=== PATIENT | male | born 1960 | race Two or more races ===

== ENCOUNTER 2021-04-17 09:08 | Inpatient (IN) | payer MEDICAID, SELFPAY ==
[~2021-04-17] VITALS: Ht 177.8 cm; Wt 73.9 kg
--- NOTE | 2021-04-17 09:08 | NUR ---
PT BIBRA 39 FROM HOME C/O SOB AND LOW O2 SAT 88% ON RA. PT IS AAOX4, HOOKED TO O2 AT 3 LPM VIA NC SAT @ 98%, HOOKED TO ATV MECHANIC, KEPT RESTED AND COMFORTABLE. WILL CONTINUE TO MONITOR.
--- NOTE | 2021-04-17 09:25 | NUR ---
AT BEDSIDE FOR EVAL.
[2021-04-17] MEDS ORDERED: DEXAMETHASONE SOLN 5 MG/5 ML UDC PO ONE (09:30)
--- NOTE | 2021-04-17 09:30 | NUR ---
IV LINE ESTABLISHED BLOOD DRAWN AND SENT TO LAB.
--- NOTE | 2021-04-17 09:36 | NUR ---
FUNDS TRANSFER CLERK AT BEDSIDE FOR XRAY.
[2021-04-17] MEDS ORDERED: DEXAMETHASONE SOD PHOSPHATE 4 MG/ML VIAL ONE (09:44)
[2021-04-17] MEDS ORDERED: CEFTRIAXONE 1GM BAG (ER ONLY) 50 ML IV ONE (09:44)
[2021-04-17] MEDS ORDERED: ASCO-352 PO (09:50)
[2021-04-17] MEDS ORDERED: ZINC50TA69 PO (09:50)
[2021-04-17] MEDS ORDERED: CHOL100062 PO (09:50)
--- NOTE | 2021-04-17 09:50 | NUR ---
COVID SPECIMEN OBTAINED AND SENT TO LAB.
[2021-04-17 09:56] LABS: BASOPHILS % (AUTO) 0.1 % (0.0-2.0); HEMATOCRIT 44 % (39-51); HEMOGLOBIN 15.4 g/dL (13.5-17.5); LYMPHOCYTES # (AUTO) 0.5 K/uL (0.8-4.8); LYMPHOCYTES % (AUTO) 8.8 % (20.0-44.0); MEAN CORPUSCULAR HGB CONC 35 g/dl (31.0-36.0); MEAN CORPUSCULAR VOLUME 91 fL (80-96); MONOCYTES # (AUTO) 0.8 K/uL (0.1-1.30); MONOCYTES % (AUTO) 12.6 % (2.0-12.0); NEUTROPHILS # (AUTO) 4.9 K/uL (1.8-8.9); NEUTROPHILS % (AUTO) 78.5 % (43.0-81.0); PLATELET COUNT (AUTO) 279 K/uL (150-450); RED BLOOD CELL COUNT(AUTO) 4.84 MIL/uL (4.5-6.0); WHITE BLOOD COUNT (AUTO) 6.3 K/uL (4.3-11.0)
[2021-04-17] MEDS ORDERED: DEXAMETHASONE SOD PHOSPHATE 4 MG/ML VIAL IV ONE (10:00)
[2021-04-17] MEDS ORDERED: AZITHROMYCIN 500 MG in IV D5W 250 ML IV ONE (10:00)
[2021-04-17] MEDS ORDERED: CEFTRIAXONE 1GM BAG (ER ONLY) 1 GM/50 ML PIGGYBACK IV ONE (10:00)
[2021-04-17 10:07] LABS: ABG BASE EXCESS 1.9 mmol/L; ABG OXYGEN SATURATION 93.3 % (92.0-98.5); ABG PCO2 31.8 mmHg (35.0-45.0); ABG PO2 62.7 mmHg (75.0-100.0); AaDO2 135.5 mmHg; COHb 0.6 % (0.5-1.5); MetHb 0.3 % (0.0-1.5); O2Hb 92.5 % (94.0-97.0); SITE, ABG Right Femoral; VENT MODE, BG nasal cannula
[2021-04-17 10:10] LABS: D-DIMER 1.35 mg/L(FEU (0.17-0.50)
--- NOTE | 2021-04-17 10:25 | NUR ---
MOVE SHEET SUBMITTED AND CALLED FOR TELE BED.
[2021-04-17 10:26] LABS: CALCIUM, SERUM 8.4 mg/dL (8.5-10.1); CARBON DIOXIDE 27 mmol/L (21-32); CHLORIDE 102 mmol/L (98-107); CREATININE 1.1 mg/dL (0.6-1.3); GLUCOSE 108 mg/dL (74-106); SODIUM SERUM 137 mmol/L (136-145); UREA NITROGEN, BLOOD 17 mg/dL (7-18)
[2021-04-17 10:31] LABS: ALANINE AMINOTRANSFERASE 59 U/L (12-78); ALBUMIN 2.9 g/dL (3.4-5.0); ALKALINE PHOSPHATASE 55 U/L (46-116); ASPARTATE AMINOTRANSFERASE 26 U/L (15-37); BILIRUBIN,TOTAL 0.8 mg/dL (0.2-1.0); TOTAL PROTEIN, SERUM 6.8 g/dL (6.4-8.2)
[2021-04-17 10:46] LABS: CREATINE KINASE, TOTAL 41 U/L (39-308)
[2021-04-17 10:47] LABS: C-REACTIVE PROTEIN 11.7 mg/dL (0.0-0.9)
--- NOTE | 2021-04-17 10:52 | NUR ---
[facility] CALLED SLIP SEAT COVERER PAGED.
[2021-04-17] MEDS ORDERED: ACETAMINOPHEN 325 MG TABLET PO PRN (11:30)
[2021-04-17] MEDS ORDERED: ALBUTEROL SULFATE 8 GM HFA.AER.AD IH PRN (11:30)
[2021-04-17] MEDS ORDERED: ONDANSETRON HCL/PF 4 MG/2 ML VIAL IVP PRN (11:30)
--- NOTE | 2021-04-17 12:07 | NUR ---
REPORT GIVEN TO CJ LESLIE FOR ROSAMARIA.
[2021-04-17] MEDS ORDERED: ALBUTEROL FS 2.5 MG/3 ML VIAL.NEB NEB PRN (12:30)
--- NOTE | 2021-04-17 12:30 | NUR ---
LIBRARIAN HELPER NOTES RECEIVED PT FROM ER. DX OF COVID RELATED PNEUMONIA. ADMITTING DOCTOR IS LIBRA WERNER. RECEIVED PT IN BED, PT IS A/O X4 ON 4L NC SATING AT 97%. NO SOB, NO DISTRESS NOTED, BREATHING EVEN AND UNLABORED. SINUS RHYTHM ON MONITOR. PATIENT HAS L FA 20G. FLUSHES WELL AND PATENT. SKIN INTACT. PLAN OF CARE DISCUSSED, VERBALIZED UNDERSTANDING. AIRBORNE ISOLATION PRECAUTIONS IN PLACE. ALL SAFETY MEASURES IN PLACE, BED IN LOWEST LOCKED POSITION, SIDE RAILS UP X 3, CALL LIGHT WITHIN REACH. WILL CONTINUE TO MONITOR THROUGHOUT SHIFT. Addendum: 04/17/21 at 1539 by LORETO SCHRADER RN IV CATHETER SIZE IS 18. Addendum: 04/17/21 at 1546 by LORETO SCHRADER RN RECEIVED PT FROM E[facility] IN ER.
[2021-04-17] MEDS: ENOXAPARIN SODIUM 40 MG/0.4 ML DISP.SYRIN SQ SCH (13:08)
--- NOTE | 2021-04-17 19:08 | NUR ---
RN CLOSING NOTE PT IN BED RESTING. PT IS A/O X 4. PT IS ON 4L NC WITH NO S/SX OF PAIN OR RESP DISTRESS NOTED AT THIS TIME. BREATHING IS EVEN AND UNLABORED. PT HAS L AC #18. IV FLUSHES WELL AND PATENT. ISOLATION PRECAUTIONS IN PLACE. MEDS GIVEN ORDERED. PT TOLERATED ALL TREATMENTS WELL. ALL SAFETY MEASURES IN PLACE, BED IN LOWEST LOCKED POSITION, SIDE RAILS UP X 3, CALL LIGHT WITHIN REACH. WILL ENDORSE TO ONCOMING COMPUTER NUMERICAL CONTROL PROGRAMMER NURSE.
--- NOTE | 2021-04-17 19:30 | NUR ---
AGILE BUSINESS ANALYST NOTE RECEIVED PATIENT IN BED. A/OX4. NO S/S OF APPARENT DISTRESS ON 6LPM OF O2 VIA NC. DENIES PAIN AT THIS TIME. LEFT AC IV ACCESS ON SALINE LOCK. TELE MONITOR READING NSR 81. NEEDS ATTENDED AT THIS TIME. SAFETY IN PLACE. WILL FOLLOW THROUGH WITH PATIENT'S CARE PLAN.
--- NOTE | 2021-04-18 06:42 | NUR ---
MS RN CLOSING NOTE NO SIGNIFICANT CHANGE WITH PATIENT SINCE LAST ENDORSEMENT. TELE MONITOR READING SR THROUGHOUT SHIFT. ALL NEEDS ATTENDED. ALL SCHEDULED MEDICATION ADMINISTERED. WILL ENDORSE TO MORNING SHIFT RN FOR CONTINUITY OF CARE.
--- NOTE | 2021-04-18 07:30 | NUR ---
MS RN OPENING NOTES RECEIVED PATIENT ON BED, RESTING AND A/O X4. ON O2 AT 6LPM VIA NASAL CANNULA TOLERATING WELL. WITH NO COMPLAINTS OF PAIN OR DISCOMFORT AT THIS TIME. WITH IV ACCESS AT LEFT AC G20 SALINE LOCKED, PATENT AND INTACT. SAFETY MEASURES IN PLACED. CALL LIGHT WITHIN REACH. BED ON LOWEST LOCKED POSITION, SIDE RAILS UP X2. WILL CONTINUE TO MONITOR.
[2021-04-18 07:49] LABS: BASOPHILS % (AUTO) 0.4 % (0.0-2.0); HEMATOCRIT 44 % (39-51); HEMOGLOBIN 15.3 g/dL (13.5-17.5); LYMPHOCYTES # (AUTO) 0.8 K/uL (0.8-4.8); MEAN CORPUSCULAR HGB CONC 35 g/dl (31.0-36.0); MEAN CORPUSCULAR VOLUME 91 fL (80-96); NEUTROPHILS # (AUTO) 7.6 K/uL (1.8-8.9); NEUTROPHILS % (AUTO) 80.6 % (43.0-81.0); PLATELET COUNT (AUTO) 323 K/uL (150-450); RED BLOOD CELL COUNT(AUTO) 4.81 MIL/uL (4.5-6.0); WHITE BLOOD COUNT (AUTO) 9.4 K/uL (4.3-11.0)
[2021-04-18 08:00] VITALS: BP 132/69
[2021-04-18] MEDS: DEXAMETHASONE SOD PHOSPHATE 10 MG/ML VIAL IV SCH (09:34)
[2021-04-18] MEDS: PANTOPRAZOLE 40 MG TABLET.DR PO SCH (09:35)
[2021-04-18] MEDS: ENOXAPARIN SODIUM 40 MG/0.4 ML DISP.SYRIN SQ SCH (09:35)
[2021-04-18 10:06] LABS: ALBUMIN 2.7 g/dL (3.4-5.0); BILIRUBIN,TOTAL 0.7 mg/dL (0.2-1.0); CALCIUM, SERUM 8.6 mg/dL (8.5-10.1); CREATININE 1.1 mg/dL (0.6-1.3); MAGNESIUM 2.3 mg/dL (1.8-2.4); PHOSPHORUS 3.6 mg/dL (2.5-4.9); POTASSIUM 3.9 mmol/L (3.5-5.1); TOTAL PROTEIN, SERUM 6.8 g/dL (6.4-8.2)
[2021-04-18 12:00] VITALS: BP 121/54
[2021-04-18] MEDS: AZITHROMYCIN 250 MG TABLET PO SCH (12:35)
[2021-04-18] MEDS ORDERED: GUAIFENESIN/CODEINE 10 ML UDC PO PRN (13:00)
[2021-04-18] MEDS: ZINC SULFATE 220 MG CAPSULE PO SCH (13:10)
[2021-04-18] MEDS: ASCORBIC ACID 500 MG TABLET PO SCH (13:10)
[2021-04-18] MEDS: CHOLECALCIFEROL 1,000 UNIT TABLET (VIT D3) PO SCH (13:10)
[2021-04-18] MEDS ORDERED: REMDESIVIR (CHARGED) 200 MG, *LOADING DOSE 1 EA in IV NS 0.9% 210 ML IV ONE (14:00)
--- NOTE | 2021-04-18 18:21 | NUR ---
CNC SPECIALIST CLOSING NOTES PATIENT ON BED, RESTING AND A/O X4. ON O2 AT 6LPM VIA NASAL CANNULA TOLERATING WELL. WITH NO COMPLAINTS OF PAIN OR DISCOMFORT AT THIS TIME. WITH IV ACCESS AT LEFT AC G20 SALINE LOCKED, PATENT AND INTACT. SAFETY MEASURES IN PLACED. CALL LIGHT WITHIN REACH. BED ON LOWEST LOCKED POSITION, SIDE RAILS UP X2. WILL ENDORSE TO NEXT SHIFT FOR ROSAMARIA.
--- NOTE | 2021-04-18 19:15 | NUR ---
RN OPENING NOTES RECEIVED PATIENT ON BED A/O X 4, RESPIRATORY EVEN AND UNLABORED, ON NC AT 6LPM TOLERATING WELL, NO SOB NOTED, NO S/S OF DISTRESS NOTED. PATIENT NOTED WITH LAC PERIPHERAL LINE G#20 INTACT PATENT AND FLUSHING WELL. BED IN LOWEST POSITION LOCKED AND BED ALARM ARMED. WILL CONTINUE TO MONITOR.
[2021-04-18 20:00] VITALS: BP 116/81
[2021-04-19] VITALS: BP 122/61
[2021-04-19 04:00] VITALS: BP 114/62
--- NOTE | 2021-04-19 07:18 | NUR ---
RN CLOSING NOTES REMAIN STABLE THROUGH OUT THE NIGHT, RESPIRATORY EVEN AND UNLABORED, ON NC AT 6LPM TOLERATING WELL, NO SOB NOTED, NO S/S OF DISTRESS NOTED. PATIENT NOTED WITH LAC PERIPHERAL LINE G#20 INTACT PATENT AND FLUSHING WELL. ALL DUE MEDS GIVEN ORDERED. BED IN LOWEST POSITION LOCKED AND BED ALARM ARMED. WILL CONTINUE TO MONITOR.
[2021-04-19 08:00] VITALS: BP 109/74
[2021-04-19] MEDS: CHOLECALCIFEROL 1,000 UNIT TABLET (VIT D3) PO SCH (08:39)
[2021-04-19] MEDS: ASCORBIC ACID 500 MG TABLET PO SCH (08:39)
[2021-04-19] MEDS: PANTOPRAZOLE 40 MG TABLET.DR PO SCH (08:39)
[2021-04-19] MEDS: DEXAMETHASONE SOD PHOSPHATE 10 MG/ML VIAL IV SCH (08:39)
[2021-04-19] MEDS: ZINC SULFATE 220 MG CAPSULE PO SCH (08:40)
[2021-04-19 08:41] LABS: BASOPHILS % (AUTO) 0.1 % (0.0-2.0); EOSINOPHILS % (AUTO) 0.3 % (0.0-6.0); HEMATOCRIT 42 % (39-51); HEMOGLOBIN 14.6 g/dL (13.5-17.5); LYMPHOCYTES # (AUTO) 0.9 K/uL (0.8-4.8); LYMPHOCYTES % (AUTO) 10.6 % (20.0-44.0); MEAN CORPUSCULAR HGB CONC 35 g/dl (31.0-36.0); MEAN CORPUSCULAR VOLUME 91 fL (80-96); MONOCYTES # (AUTO) 1.1 K/uL (0.1-1.30); MONOCYTES % (AUTO) 13.6 % (2.0-12.0); NEUTROPHILS # (AUTO) 6.2 K/uL (1.8-8.9); NEUTROPHILS % (AUTO) 75.4 % (43.0-81.0); PLATELET COUNT (AUTO) 400 K/uL (150-450); RED BLOOD CELL COUNT(AUTO) 4.65 MIL/uL (4.5-6.0); WHITE BLOOD COUNT (AUTO) 8.2 K/uL (4.3-11.0)
[2021-04-19] MEDS: ENOXAPARIN SODIUM 40 MG/0.4 ML DISP.SYRIN SQ SCH (08:41)
[2021-04-19 08:51] LABS: ALBUMIN 2.5 g/dL (3.4-5.0); BILIRUBIN,DIRECT 0.2 mg/dL (0.0-0.2); BILIRUBIN,TOTAL 0.8 mg/dL (0.2-1.0); CALCIUM, SERUM 8.6 mg/dL (8.5-10.1); POTASSIUM 4.1 mmol/L (3.5-5.1); TOTAL PROTEIN, SERUM 6.2 g/dL (6.4-8.2)
[2021-04-19] MEDS: AZITHROMYCIN 250 MG TABLET PO SCH (11:32)
[2021-04-19 12:00] VITALS: BP 106/73
[2021-04-19] MEDS: ACIDOPHILUS/BULGARICUS 1 EACH TAB.CHEW PO SCH ×2 (12:07→16:28)
[2021-04-19] MEDS: REMDESIVIR (CHARGED) 100 MG in IV NS 0.9% 100 ML IV SCH (14:01)
[2021-04-19 16:00] VITALS: BP 110/75
--- NOTE | 2021-04-19 18:42 | NUR ---
RN CLOSING NOTES PATIENT IN BED, A/O X4, REMAINS STABLE THROUGH OUT THE DAY, RESPIRATORY EVEN AND UNLABORED, ON NC AT 6L TOLERATING WELL, NO SOB NOTED, BREATHING EVEN, DENIES CHEST DISCOMFORT, NO S/S OF DISTRESS NOTED. PATIENT NOTED WITH LAC PERIPHERAL LINE G#20 INTACT PATENT AND FLUSHING WELL. ALL DUE MEDS GIVEN ORDERED. BED IN LOWEST POSITION LOCKED. CALL LIGHT WITHIN REACH. WILL ENDORSE TO COMPLAINT ADJUSTER NURSE.
--- NOTE | 2021-04-19 19:35 | NUR ---
RN OPENING NOTES RECEIVED PATIENT ON BED, SITTING POSITION, A/O X 4, VERBALLY RESPONSIVE. ABLE TO VERBALIZED NEEDS. NO SOB, NO CHEST CONGESTION, BREATHING EVEN AND UNLABORED, ON NC AT 6LPM TOLERATING WELL, IV ACCESS ON LAC G#20 INTACT AND PATENT. NO S/S OF INFILTRATIONS. NO C/O PAIN OR DISCOMFORT. NO ACUTE DISTRESS. ALL SAFETY MEASURES IN PLACE. BED IN LOWEST POSITION AND LOCKED. BOTH SIDE RAILS UP. WILL CONTINUE TO MONITOR.
[2021-04-19 20:00] VITALS: BP 120/61
[2021-04-20] VITALS (7 sets, daily range): BP systolic 110–130; BP diastolic 52–80
--- NOTE | 2021-04-20 07:01 | NUR ---
RN CLOSING NOTES PATIENT SITTING ON BED, A/O X 4, VERBALLY RESPONSIVE. ABLE TO VERBALIZED NEEDS. NO SOB, NO CHEST CONGESTION, BREATHING EVEN AND UNLABORED, ON O2 AT 6LPM VIA N/C, O2 SAT 96% AND TOLERATING WELL, IV ACCESS ON LAC G#20 INTACT AND PATENT. NO S/S OF INFILTRATIONS. NO C/O PAIN OR DISCOMFORT. NO ACUTE DISTRESS. PT STRONGLY WANTS TO MOVE TO DIFFERENT ROOM. ALL SAFETY MEASURES IN PLACE. BED IN LOWEST POSITION AND LOCKED. BOTH SIDE RAILS UP. WILL ENDORSE TO MORNING SHIFT NURSE.
--- NOTE | 2021-04-20 07:26 | NUR ---
RN NOTE PATIENT IS IN BED WITH HOB AT SEMI FOWLERS POSITION. PATIENT IS ON ROOM AIR WITH NO SIGNS OF LABORED BREATHING. PATIENT IS AOX1. BED IS LOCKED IN THE LOWEST POSITION, 3 GUARD RAILS RAISED, CALL ANGUIANO WITHIN REACH, AND ALL HOSPITAL SAFETY PRECAUTIONS ARE BEING FOLLOWED. WILL CONTINUE TO MONITOR THROUGHOUT SHIFT.
[2021-04-20 07:34] LABS: ALBUMIN 2.4 g/dL (3.4-5.0); BILIRUBIN,DIRECT 0.2 mg/dL (0.0-0.2); BILIRUBIN,TOTAL 0.8 mg/dL (0.2-1.0); CALCIUM, SERUM 9.1 mg/dL (8.5-10.1); POTASSIUM 4.3 mmol/L (3.5-5.1); TOTAL PROTEIN, SERUM 6.1 g/dL (6.4-8.2)
[2021-04-20 07:44] LABS: BASOPHILS % (AUTO) 0.2 % (0.0-2.0); EOSINOPHILS % (AUTO) 0.7 % (0.0-6.0); HEMATOCRIT 41 % (39-51); HEMOGLOBIN 14.3 g/dL (13.5-17.5); LYMPHOCYTES # (AUTO) 0.9 K/uL (0.8-4.8); LYMPHOCYTES % (AUTO) 11.6 % (20.0-44.0); MEAN CORPUSCULAR HGB CONC 35 g/dl (31.0-36.0); MEAN CORPUSCULAR VOLUME 91 fL (80-96); MONOCYTES # (AUTO) 1.1 K/uL (0.1-1.30); MONOCYTES % (AUTO) 15.2 % (2.0-12.0); NEUTROPHILS # (AUTO) 5.4 K/uL (1.8-8.9); NEUTROPHILS % (AUTO) 72.3 % (43.0-81.0); PLATELET COUNT (AUTO) 450 K/uL (150-450); RED BLOOD CELL COUNT(AUTO) 4.51 MIL/uL (4.5-6.0); WHITE BLOOD COUNT (AUTO) 7.5 K/uL (4.3-11.0)
[2021-04-20] MEDS: ZINC SULFATE 220 MG CAPSULE PO SCH (08:25)
[2021-04-20] MEDS: PANTOPRAZOLE 40 MG TABLET.DR PO SCH (08:25)
[2021-04-20] MEDS: ASCORBIC ACID 500 MG TABLET PO SCH (08:25)
[2021-04-20] MEDS: ACIDOPHILUS/BULGARICUS 1 EACH TAB.CHEW PO SCH ×3 (08:25→16:15)
[2021-04-20] MEDS: CHOLECALCIFEROL 1,000 UNIT TABLET (VIT D3) PO SCH (08:26)
[2021-04-20] MEDS: DEXAMETHASONE SOD PHOSPHATE 10 MG/ML VIAL IV SCH (08:26)
[2021-04-20] MEDS: ENOXAPARIN SODIUM 40 MG/0.4 ML DISP.SYRIN SQ SCH (08:28)
[2021-04-20 09:16] LABS: LYMPHOCYTES % (MANUAL) 14 % (16-48); MONOCYTES % (MANUAL) 12 % (0-11.0); NEUTROPHILS % (MANUAL) 74 (42-76)
[2021-04-20] MEDS ORDERED: CODEINE/PROMETHAZINE HCL 5 ML UDC PO PRN (12:00)
[2021-04-20] MEDS: AZITHROMYCIN 250 MG TABLET PO SCH (13:43)
[2021-04-20] MEDS: REMDESIVIR (CHARGED) 100 MG in IV NS 0.9% 100 ML IV SCH (13:44)
--- NOTE | 2021-04-20 18:43 | NUR ---
RN NOTE PATIENT IS IN BED WITH HOB AT SEMI FOWLERS POSITION. PATIENT IS ON 6L NC WITH NO SIGNS OF LABORED BREATHING. PATIENT IS AOX1. BED IS LOCKED IN THE LOWEST POSITION, 3 GUARD RAILS RAISED, CALL ANGUIANO WITHIN REACH, AND ALL HOSPITAL SAFETY PRECAUTIONS ARE BEING FOLLOWED. PATIENT REMAINED STABLE THROUGHOUT SHIFT AND ALL DUE MEDS WERE GIVEN. WILL ENDORSE TO PLASMA PROCESSING TECHNICIAN RN.
--- NOTE | 2021-04-20 19:55 | NUR ---
RN OPENING NOTES PATIENT IS LAYING COMFORTABLY IN BED, A/O X 4, VERBALLY RESPONSIVE. ABLE TO VERBALIZED NEEDS. NO SOB, NO CHEST CONGESTION, BREATHING EVEN AND UNLABORED, ON O2 AT 6LPM VIA N/C, O2 SAT 96% AND TOLERATING WELL, IV ACCESS ON LAC G#20 INTACT AND PATENT. NO S/S OF INFILTRATIONS. NO C/O PAIN OR DISCOMFORT.ALL ISOLATION PRECAUTIONS AND ENVIRONMENTAL MEASURES TAKEN. BED IN LOWEST POSITION AND LOCKED. BOTH SIDE RAILS UP.
[2021-04-21] VITALS: BP 110/61
--- NOTE | 2021-04-21 06:50 | NUR ---
RN CLOSING NOTES PATIENT REMAINS IN BED RESTING, A/O X 4 WITH NO COMPLAINS OF SOB. AT 6L OF O2 SATURATING 97%. ALL PATIENT NEEDS MET THROUGHOUT THE SHIFT. . ALL SAFETY MEASURES IN PLACE. BED IN LOWEST POSITION AND LOCKED. BOTH SIDE RAILS UP. WILL ENDORSE TO ONCOMING MORNING SHIFT NURSE.
[2021-04-21 07:12] LABS: BASOPHILS % (AUTO) 0.2 % (0.0-2.0); HEMATOCRIT 41 % (39-51); HEMOGLOBIN 14.3 g/dL (13.5-17.5); LYMPHOCYTES # (AUTO) 1.1 K/uL (0.8-4.8); LYMPHOCYTES % (AUTO) 18.5 % (20.0-44.0); MEAN CORPUSCULAR HGB CONC 35 g/dl (31.0-36.0); MEAN CORPUSCULAR VOLUME 91 fL (80-96); MONOCYTES # (AUTO) 0.9 K/uL (0.1-1.30); MONOCYTES % (AUTO) 14.8 % (2.0-12.0); NEUTROPHILS % (AUTO) 65.5 % (43.0-81.0); PLATELET COUNT (AUTO) 469 K/uL (150-450); RED BLOOD CELL COUNT(AUTO) 4.51 MIL/uL (4.5-6.0); WHITE BLOOD COUNT (AUTO) 6.1 K/uL (4.3-11.0)
[2021-04-21 07:26] LABS: ALBUMIN 2.4 g/dL (3.4-5.0); BILIRUBIN,DIRECT 0.2 mg/dL (0.0-0.2); BILIRUBIN,TOTAL 0.5 mg/dL (0.2-1.0); CALCIUM, SERUM 8.6 mg/dL (8.5-10.1); CREATININE 1.1 mg/dL (0.6-1.3); POTASSIUM 4.4 mmol/L (3.5-5.1); TOTAL PROTEIN, SERUM 6.1 g/dL (6.4-8.2)
--- NOTE | 2021-04-21 07:56 | NUR ---
RN OPENING NOTE RECEIVED PATIENT ON BED, SITTING POSITION, A/O X 4, NO SOB, NO CHEST CONGESTION, BREATHING EVEN AND UNLABORED, ON NC AT 6LPM TOLERATING WELL, IV ACCESS ON LAC G#20 INTACT AND PATENT. NO S/S OF INFILTRATIONS. NO C/O PAIN OR DISCOMFORT. NO ACUTE DISTRESS. ALL SAFETY MEASURES IN PLACE. BED IN LOWEST POSITION AND LOCKED. BOTH SIDE RAILS UP.
[2021-04-21 08:00] VITALS: BP 105/57
[2021-04-21] MEDS: DEXAMETHASONE SOD PHOSPHATE 10 MG/ML VIAL IV SCH (08:30)
[2021-04-21] MEDS: PANTOPRAZOLE 40 MG TABLET.DR PO SCH (08:30)
[2021-04-21] MEDS: ZINC SULFATE 220 MG CAPSULE PO SCH (08:30)
[2021-04-21] MEDS: ASCORBIC ACID 500 MG TABLET PO SCH (08:30)
[2021-04-21] MEDS: CHOLECALCIFEROL 1,000 UNIT TABLET (VIT D3) PO SCH (08:30)
[2021-04-21] MEDS: ENOXAPARIN SODIUM 40 MG/0.4 ML DISP.SYRIN SQ SCH (08:32)
[2021-04-21] MEDS: ACIDOPHILUS/BULGARICUS 1 EACH TAB.CHEW PO SCH ×3 (08:33→16:58)
[2021-04-21] MEDS: AZITHROMYCIN 250 MG TABLET PO SCH (13:16)
[2021-04-21] MEDS: REMDESIVIR (CHARGED) 100 MG in IV NS 0.9% 100 ML IV SCH (13:56)
[2021-04-21 14:00] VITALS: BP 116/62
[2021-04-21 16:00] VITALS: BP 116/62
--- NOTE | 2021-04-21 18:44 | NUR ---
RN CLOSING NOTE PATIENT ON BED, A/O X 4, NO SOB, NO CHEST CONGESTION, BREATHING EVEN AND UNLABORED, ON NC AT 3LPM TOLERATING WELL, IV ACCESS ON LAC G#22 INTACT AND PATENT SL. NO S/S OF INFILTRATIONS. ALL SCHEDULED MEDICATIONS GIVEN. NO C/O PAIN OR DISCOMFORT. NO ACUTE DISTRESS. ALL SAFETY MEASURES IN PLACE. BED IN LOWEST POSITION AND LOCKED. BOTH SIDE RAILS UP. WILL ENDORSE TO NIGHT NURSE FOR ROSAMARIA.
--- NOTE | 2021-04-21 19:10 | NUR ---
RN NOTES RECEIVED REPORT FROM MORNING RN. PATIENT IS A/O X4 ABLE TO MAKE NEEDS KNOWN NO DISTRESS NO PAIN NOTED AT THIS TIME. ON OXYGEN INHALATION AT 3LPM VIA NC TOLERATING WELL. WITH IV ACCESS AT L AC #22 PATENT FLUSHES WELL. VITAL SIGNS TAKEN AND RECORDED AFEBRILE. ALL SAFETY MEASURES IN PLACE AT ALL TIMES. CALL LIGHT WITHIN REACH. HOB ELEVATED. BED ON LOWEST POSITION AND LOCKED. WILL CONTINUE TO MONITOR THE PATIENT
[2021-04-21 20:00] VITALS: BP 118/57
[2021-04-22 04:00] VITALS: BP 104/61
--- NOTE | 2021-04-22 06:58 | NUR ---
RN NOTES PATIENT REMAINS STABLE THE WHOLE SHIFT. PATIENT IN BED A/OX3. ALL NEEDS ATTENDED. PATIENT STILL ON OXYGEN INHALATION AT 4LPM/NC TOLERATING WELL 96%. ALL SAFETY MEASURES IN PLACE AT ALL TIMES. HOB ELEVATED. CALL LIGHT WITHIN REACH. FOR POSS. D/C TODAY. ENDORSED.
[2021-04-22 07:17] LABS: BASOPHILS % (AUTO) 0.3 % (0.0-2.0); EOSINOPHILS % (AUTO) 0.8 % (0.0-6.0); HEMATOCRIT 40 % (39-51); HEMOGLOBIN 13.9 g/dL (13.5-17.5); LYMPHOCYTES # (AUTO) 1.2 K/uL (0.8-4.8); LYMPHOCYTES % (AUTO) 21.1 % (20.0-44.0); MEAN CORPUSCULAR HGB CONC 35 g/dl (31.0-36.0); MEAN CORPUSCULAR VOLUME 91 fL (80-96); MONOCYTES # (AUTO) 0.7 K/uL (0.1-1.30); MONOCYTES % (AUTO) 13.2 % (2.0-12.0); NEUTROPHILS # (AUTO) 3.7 K/uL (1.8-8.9); NEUTROPHILS % (AUTO) 64.6 % (43.0-81.0); PLATELET COUNT (AUTO) 487 K/uL (150-450); RED BLOOD CELL COUNT(AUTO) 4.41 MIL/uL (4.5-6.0); WHITE BLOOD COUNT (AUTO) 5.7 K/uL (4.3-11.0)
--- NOTE | 2021-04-22 07:39 | NUR ---
RN OPENING NOTE RECEIVED PATIENT ON BED, SITTING POSITION, A/O X 4, NO SOB, NO CHEST CONGESTION, BREATHING EVEN AND UNLABORED, ON NC AT 4LPM TOLERATING WELL, IV ACCESS ON LAC G#22 INTACT AND PATENT. NO S/S OF INFILTRATIONS. NO C/O PAIN OR DISCOMFORT. NO ACUTE DISTRESS. ALL SAFETY MEASURES IN PLACE. BED IN LOWEST POSITION AND LOCKED. BOTH SIDE RAILS UP.
[2021-04-22 07:56] LABS: ALBUMIN 2.3 g/dL (3.4-5.0); BILIRUBIN,DIRECT 0.1 mg/dL (0.0-0.2); BILIRUBIN,TOTAL 0.4 mg/dL (0.2-1.0); CALCIUM, SERUM 8.6 mg/dL (8.5-10.1); CREATININE 1.1 mg/dL (0.6-1.3); POTASSIUM 4.4 mmol/L (3.5-5.1); TOTAL PROTEIN, SERUM 5.9 g/dL (6.4-8.2)
[2021-04-22 08:35] LABS: ABG BASE EXCESS 0.2 mmol/L; ABG OXYGEN SATURATION 93.2 % (92.0-98.5); ABG PCO2 36.4 mmHg (35.0-45.0); ABG PH 7.437 (7.350-7.450); ABG PO2 65.4 mmHg (75.0-100.0); AaDO2 91.3 mmHg; COHb 0.5 % (0.5-1.5); MetHb 0.1 % (0.0-1.5); O2Hb 92.6 % (94.0-97.0); SITE, ABG Right Radial
[2021-04-22] MEDS: DEXAMETHASONE SOD PHOSPHATE 10 MG/ML VIAL IV SCH (08:36)
[2021-04-22] MEDS: ACIDOPHILUS/BULGARICUS 1 EACH TAB.CHEW PO SCH ×2 (08:36→13:00)
[2021-04-22] MEDS: ZINC SULFATE 220 MG CAPSULE PO SCH (08:36)
[2021-04-22] MEDS: PANTOPRAZOLE 40 MG TABLET.DR PO SCH (08:36)
[2021-04-22] MEDS: ASCORBIC ACID 500 MG TABLET PO SCH (08:36)
[2021-04-22] MEDS: CHOLECALCIFEROL 1,000 UNIT TABLET (VIT D3) PO SCH (08:36)
[2021-04-22] MEDS: ENOXAPARIN SODIUM 40 MG/0.4 ML DISP.SYRIN SQ SCH (08:45)
[2021-04-22] MEDS: REMDESIVIR (CHARGED) 100 MG in IV NS 0.9% 100 ML IV SCH (14:00)
[2021-04-22 16:00] VITALS: BP 130/64
[2021-04-22] MEDS ORDERED: BENZ-13 PO (16:36)
[2021-04-22] MEDS ORDERED: DEXA10VI2 IV (16:36)
--- NOTE | 2021-04-22 17:00 | NUR ---
RN NOTE PATIENT WAS DISCHARGED AND WALKED OUT TO THE FRONT LOBBY WHERE HE WAS PICKED UP
== END 2021-04-22 17:00 | disposition home or self-care (01) | DRG 137 ==
LOC: ER 09:15 → TELE1 11:41 → MEDSG1 04-20 16:48
PROVIDERS: ADMIT Hospitalist; ATTEND Nurse Practitioner Acute Care
PROC: XW033E5 Introduction of Remdesivir Anti-infective into Peripheral Vein, Percutaneous Approach, New Technology Group 5 (ICD-10-PCS; principal; 2021-04-18)
DX: U07.1 COVID-19 (principal); J96.01 Acute respiratory failure with hypoxia; J12.82 Pneumonia due to coronavirus disease 2019; E88.09 Other disorders of plasma-protein metabolism, not elsewhere classified; R74.01 Elevation of levels of liver transaminase levels
CPT/HCPCS: 36415; 36600; 71045-TC; 80048-TC; 80053-TC; 80076-TC; 82550-TC; 82728-TC; 82803-TC; 83605-TC; 83615-TC; 83735-TC; 83880; 84100-TC; 84484-TC; 85025-TC; 85378-TC; 85385-TC; 85610-TC; 85730-TC; 86140-TC; 87040-TC; 87081-TC; A4216; G0378; J0456; J0696; J1100; J1650; J7030; J7050; J7060; U0003